=== PATIENT | male | born 1970 | race Hispanic/Latino ===

== ENCOUNTER 2018-12-27 12:22 | Emergency (ER) | payer SELFPAY ==
--- NOTE | 2018-12-27 12:52 | EDPHYS ---
Physician Documentation [facility] Name: Danie Gandhi Age: 48 yrs Sex: Male : 1970 Arrival Date: 12/27/2018 Time: 12:32 Bed 16 Private MD: ED Physician David Novak HPI: 12/27 12:50 This 48 yrs old Male presents to ER via Unassigned with complaints of Skunk kb bite. 12:50 The patient was bitten on the palmar aspect of distal phalanx of right index finger, by kb a skunk picked up skunk, at a friend's house. Onset: The symptoms/episode began/occurred yesterday. Animal information: Patient/Caregiver unable to provide information related to the animal. Secondary to the bite the patient reports a puncture wound. Associated signs and symptoms: The patient has no apparent associated signs or symptoms. Severity of symptoms: At their worst the symptoms were mild, in the emergency department the symptoms are unchanged. The patient has not experienced similar symptoms in the past. The patient has not recently seen a physician. Pt was bitten by skunk yesterday when he tried to pick it up. Came in today because he was worried about rabies. Historical: - Allergies: 12:54 No Known Allergies; ph - Home Meds: 12:54 None [Active]; ph - Immunization history:: Adult Immunizations unknown. - Social history:: Smoking status: Patient/guardian denies using tobacco. - Ebola Screening: : No symptoms or risks identified at this time. ROS: 12:49 Constitutional: Negative for fever, chills, and weight loss, Neck: Negative for injury, kb pain, and swelling, Cardiovascular: Negative for chest pain, palpitations, and edema, Respiratory: Negative for shortness of breath, cough, wheezing, and pleuritic chest pain, Abdomen/GI: Negative for abdominal pain, nausea, vomiting, diarrhea, and constipation, MS/Extremity: Negative for injury and deformity, Neuro: Negative for headache, weakness, numbness, tingling, and seizure. 12:49 Skin: Positive for puncture, of the palmar aspect of distal phalanx of right index finger. Exam: 12:49 Constitutional: This is a well developed, well nourished patient who is awake, alert, kb and in no acute distress. Head/Face: Normocephalic, atraumatic. Chest/axilla: Normal chest wall appearance and motion. Nontender with no deformity. No lesions are appreciated. Cardiovascular: Regular rate and rhythm with a normal S1 and S2. No gallops, murmurs, or rubs. Normal PMI, no JVD. No pulse deficits. Respiratory: Lungs have equal breath sounds bilaterally, clear to auscultation and percussion. No rales, rhonchi or wheezes noted. No increased work of breathing, no retractions or nasal flaring. Abdomen/GI: Soft, non-tender, with normal bowel sounds. No distension or tympany. No guarding or rebound. No evidence of tenderness throughout. MS/ Extremity: Pulses equal, no cyanosis. Neurovascular intact. Full, normal range of motion. Neuro: Awake and alert, GCS 15, oriented to person, place, time, and situation. Cranial nerves II-XII grossly intact. Motor strength 5/5 in all extremities. Sensory grossly intact. Cerebellar exam normal. Normal gait. 12:49 Skin: injury, bite(s), superficial, of the palmar aspect of distal phalanx of right index finger, puncture. Vital Signs: 12:53 BP 118 / 88; Pulse 83; Resp 18; Temp 98.2; Pulse Ox 98% on R/A; ph MDM: 12:46 Patient medically screened. kb 12:49 Data reviewed: vital signs, nurses notes. Data interpreted: Pulse oximetry: on room air kb is 100 %. Interpretation: normal. Counseling: I had a detailed discussion with the patient and/or guardian regarding: the historical points, exam findings, and any diagnostic results supporting the discharge/admit diagnosis, the need for outpatient follow up, a family practitioner, to return to the emergency department if symptoms worsen or persist or if there are any questions or concerns that arise at home. Administered Medications: No medications were administered Disposition: 12/27/18 12:52 Discharged to Home. Impression: Bitten by other mammals - skunk. - Condition is Stable. - Discharge Instructions: Animal Bite, [id number]. - Prescriptions for Augmentin 875- 125 mg Oral Tablet - take 1 tablet by ORAL route every 12 hours for 7 days; 14 tablet. - Medication Reconciliation Form, Thank You Letter, Antibiotic Education, Prescription Opioid Use form. - Follow up: Emergency Department; When: As needed; Reason: Worsening of condition. Follow up: Private Physician; When: 2 - 3 days; Reason: Recheck today's complaints, Continuance of care, Re-evaluation by your physician. Addendum: 12/28/2018 20:31 Co-signature as Attending Physician, David Novak MD I agree with the assessment and c stern plan of care. Signatures: Angi Lobo, CARLTON-C CARLTON-David Watson MD MD cha Hall, Patricia, RN RN ph Corrections: (The following items were deleted from the chart) 12/27 13:15 12:52 12/27/2018 12:52 Discharged to Home. Impression: Bitten by other mammals - skunk. ph Condition is Stable. Forms are Medication Reconciliation Form, Thank You Letter, Antibiotic Education, Prescription Opioid Use. Follow up: Emergency Department; When: As needed; Reason: Worsening of condition. Follow up: Private Physician; When: 2 - 3 days; Reason: Recheck today's complaints, Continuance of care, Re-evaluation by your physician. kb
--- NOTE | 2018-12-27 13:16 | ER ---
Nurse's Notes [facility] Name: Danie Gandhi Age: 48 yrs Sex: Male : 1970 Arrival Date: 12/27/2018 Time: 12:32 Bed 16 Private MD: Diagnosis: Bitten by other mammals-skunk Presentation: 12/27 12:51 Presenting complaint: Patient states: Bitten by skunk last night, small puncture wound ph to R index finger, denies pain or fever. Transition of care: patient was not received from another setting of care. Onset of symptoms was December 27, 2018. Risk Assessment: Do you want to hurt yourself or someone else? Patient reports no desire to harm self or others. Initial Sepsis Screen: Does the patient meet any 2 criteria? No. Patient's initial sepsis screen is negative. Does the patient have a suspected source of infection? No. Patient's initial sepsis screen is negative. Care prior to arrival: None. 12:51 Method Of Arrival: Ambulatory ph 12:51 Acuity: FARHAN 5 ph Triage Assessment: 12:55 General: Appears in no apparent distress. comfortable, well groomed, Behavior is calm, ph cooperative, appropriate for age. Pain: Denies pain. Neuro: Level of Consciousness is awake, alert, obeys commands, Oriented to person, place, time, situation. Cardiovascular: Capillary refill < 3 seconds in bilateral fingers Patient's skin is warm and dry. Respiratory: Airway is patent Respiratory effort is even, unlabored, Respiratory pattern is regular, symmetrical. Derm: Skin is healthy with good turgor, Skin is pink, warm \T\ dry. Injury Description: Bite sustained to right hand caused by a skunk, is superficial, from animal, was sustained 12-24 hours ago. Historical: - Allergies: 12:54 No Known Allergies; ph - Home Meds: 12:54 None [Active]; ph - Immunization history:: Adult Immunizations unknown. - Social history:: Smoking status: Patient/guardian denies using tobacco. - Ebola Screening: : No symptoms or risks identified at this time. Screenin:54 Abuse screen: Denies threats or abuse. Denies injuries from another. Nutritional ph screening: No deficits noted. Tuberculosis screening: No symptoms or risk factors identified. Fall Risk None identified. Vital Signs: 12:53 BP 118 / 88; Pulse 83; Resp 18; Temp 98.2; Pulse Ox 98% on R/A; ph ED Course: 12:32 Patient arrived in ED. mr 12:46 Ang[facility]obo [facility]C [facility] kb 12:46 David Novak MD is Attending Physician. kb 12:51 Mary Mendoza, RN is Primary Nurse. ph 12:53 Triage completed. ph 12:54 Patient has correct armband on for positive identification. Bed in low position. Call ph light in reach. 12:56 No provider procedures requiring assistance completed. Patient did not have IV access ph during this emergency room visit. 13:15 Arm band placed on. ph Administered Medications: No medications were administered Outcome: 12:52 Discharge ordered by . kb 13:11 Discharged to home ambulatory, with significant other. ph 13:11 Condition: good 13:11 Discharge instructions given to patient, significant other, Instructed on discharge instructions, follow up and referral plans. medication usage, Pt provided w/ contact info for rabies expert at [facility] Demonstrated understanding of instructions, follow-up care, medications, Prescriptions given X 1. 13:15 Patient left the ED. ph Signatures: Angi Lobo FNP-C PART MAKER-Jasen Jessica Styles mr Mary Mendoza, RN RN ph
== END 2018-12-27 13:15 | disposition home or self-care (01) ==
LOC: ER 12:22
DX: S61.230A Puncture wound without foreign body of right index finger without damage to nail, initial encounter (principal); W64.XXXA Exposure to other animate mechanical forces, initial encounter; Y93.89 Activity, other specified; Y92.9 Unspecified place or not applicable
CPT/HCPCS: 99282